=== PATIENT | male | born 1965 | race Caucasian/White ===

== ENCOUNTER 2019-03-31 07:32 | Day surgery (SDC) | payer BC ==
[2019-03-29 10:13] VITALS: BMI 27.8
[2019-03-31] MEDS ORDERED: LIDOCAINE HCL/PF 2% SDV 5ML VIAL ONE (07:43)
[2019-03-31] MEDS ORDERED: PROPOFOL 20 ML ONE ×2 (07:43)
[2019-03-31 09:37] VITALS: BP 98/60; PULSE 62; TEMP 98
--- NOTE | 2019-04-05 11:54 | PATH ---
Surgical Pathology Report Patient Name: WALDO ALEX [facility]. Rec. #: [id number] /Age/Gender: 1965 (Age: 54) / M Account: [id number] Location: [facility] Taken: 03/31/2019 Received: 03/31/2019 Reported: 04/05/2019 Physicians: Tony Dave M.D. Specimen(s) Received BX POLYP RIGHT COLON Clinical History Screening Postoperative diagnosis: Colon polyps Final Diagnosis RIGHT COLON, POLYP, BIOPSY: TUBULAR ADENOMA. Electronically Signed Adriana Pinedo M.D. Gross Description Received in formalin, labeled "biopsy polyp right colon" are 2 duron, polypoid portions of soft tissue measuring 0.5 and 0.7 cm. in greatest dimension. The specimens are submitted in toto in one cassette. 04/01/201904/01/2019
== END 2019-03-31 09:25 | disposition home or self-care (01) ==
LOC: FASU-ENDO 07:32
PROVIDERS: ATTEND Internal Medicine Gastroenterology
PROC: 0DBN8ZX Excision of Sigmoid Colon, Via Natural or Artificial Opening Endoscopic, Diagnostic (ICD-10-PCS; 2019-03-31)
PROC: 0DBK8ZX Excision of Ascending Colon, Via Natural or Artificial Opening Endoscopic, Diagnostic (ICD-10-PCS; principal; 2019-03-31 08:30)
DX: Z12.11 Encounter for screening for malignant neoplasm of colon (principal); D12.2 Benign neoplasm of ascending colon
CPT/HCPCS: 88305-TC

== ENCOUNTER 2023-06-18 07:29 | Day surgery (SDC) | payer BC ==
[2023-06-13 14:05] VITALS: BMI 26.9
[2023-06-18] MEDS ORDERED: PROPOFOL 160 ML ONE (08:04)
[2023-06-18 08:39] VITALS: RESP 20; TEMP 98
[2023-06-18 09:01] VITALS: BP 117/65; PULSE 72
== END 2023-06-18 09:00 | disposition home or self-care (01) ==
LOC: FASU-ENDO 07:29
PROVIDERS: ATTEND Internal Medicine Gastroenterology
PROC: 0DJD8ZZ Inspection of Lower Intestinal Tract, Via Natural or Artificial Opening Endoscopic (ICD-10-PCS; principal; 2023-06-18 08:18)
DX: Z12.11 Encounter for screening for malignant neoplasm of colon (principal); Z86.010 Personal history of colon polyps